=== PATIENT | male | born 1950 ===

== ENCOUNTER → 2016-05-13 | Outpatient (CLI) | payer BC ==
--- NOTE | 2016-05-13 18:14 | FL ---
EXAMINATION: Upper GI with small bowel follow through DATE: 05/13/2016 CLINICAL INDICATION: 65-year-old male iron deficiency anemia, complains of reflux. Reports normal end oscopy 3 months ago. 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 Phlebolith in the left hemipelvis. The esophagus has a normal course and caliber. Moderate tertiary peristaltic waves are demonstrated during episodes of moderate to severe gastroesop hageal reflux when the patient is supine. A small sliding her hiatal hernia is seen. Within the stomach, there is suggestion of few scattered small rounded filling defects likely hyperpl astic polyps. No suspicious irregular filling defect or discrete ulceration is seen. The duodenum is free of any persistent filling defect and demonstrate a normal mucosal pattern. Following administration of barium, serial films were carried out to 45 hours. Barium is seen to reac h the colon at 30 minutes. Loops of jejunum and ileum are compressed and examined under fluoroscopy. The small bowel loops have a normal-caliber. Mucosal pattern is within normal limits. No intrinsic or extrinsic process is suspe cted. IMPRESSION: 1. Small sliding hiatal hernia with moderate to severe spontaneous gastroesophageal reflux when the p atient is supine. 2. Moderate tertiary peristaltic contractions ensue and is unsuccessful in clearing the refluxed cont rast. 3. A few scattered small hyperplastic polyps in the stomach which can be seen with chronic gastritis. Clinically correlate. The overall mucosal pattern is normal. 4. Unremarkable small bowel examination. Small bowel transit time is at the faster end of normal (30 minutes).
== END | disposition home or self-care (01) ==
LOC: RADFLMAIN 08:59
PROVIDERS: ATTEND Internal Medicine
DX: K31.7 Polyp of stomach and duodenum (principal); K44.9 Diaphragmatic hernia without obstruction or gangrene; K21.9 Gastro-esophageal reflux disease without esophagitis
CPT/HCPCS: 74249

== ENCOUNTER → 2016-06-04 | Outpatient (CLI) | payer BC, MEDICARE ==
--- NOTE | 2016-06-04 19:42 | XR ---
EXAMINATION TYPE: XR cervical spine comp DATE OF EXAM: 06/04/2016 7:36 PM COMPARISON: NONE HISTORY: Neck pain TECHNIQUE: 5 views FINDINGS: Cervical vertebra have normal alignment. There is degenerative disc space narrowing in the mid and lower cervical spine. There is spurring of the endplates. There is neural foraminal narrowing bilaterally at C5-6 C6-7 due to uncovertebral spurring. Atlantoaxial facet joint is normal. There ar e no cervical ribs. IMPRESSION: Moderate spondylotic changes. No fracture.
== END ==
LOC: RADXRMAIN 19:23
PROVIDERS: ATTEND Internal Medicine
DX: M47.812 Spondylosis without myelopathy or radiculopathy, cervical region (principal)
CPT/HCPCS: 72050

== ENCOUNTER → 2020-12-29 | Outpatient (CLI) | payer BC ==
[2020-12-29 16:04] LABS: HGB 14.6 g/dL (13.0-17.0); MCH 28.9 pg (27.0-32.0); MCHC 32.4 g/dL (32.0-37.0); MCV 89.1 fL (80.0-97.0); Mean Platelet Volume 10.8 fL (9.5-12.2); Platelet Count 234 X 10*3/uL (140-440); RBC 5.05 X 10*6/uL (4.40-5.60); RDW 13.5 % (11.5-14.5); WBC 7.45 X 10*3/uL (4.50-10.00)
[2020-12-29 18:33] LABS: Albumin 4.5 g/dL (3.8-4.9); Albumin/Globulin Ratio 1.99 (1.60-3.17); Anion Gap 12.1 mmol/L (4.00-12.00); BUN/Creat Ratio 11.09 Ratio (12.00-20.00); Blood Urea Nitrogen 10.2 mg/dL (9.0-27.0); Calcium 9.4 mg/dL (8.7-10.3); Carbon Dioxide 26.7 mmol/L (21.6-31.8); Globulin 2.3 g/dL (1.6-3.3); Non-African American GFR(CKD) 82.8 (60.0-200.0); Potassium 4.4 mmol/L (3.5-5.5); Prostate Specific Antigen 0.8 ng/mL (0.00-6.50); Total Bilirubin 0.7 mg/dL (0.30-1.20); Total Protein 6.8 g/dL (6.2-8.2)
[2020-12-29 18:34] LABS: Chol/HDL Ratio 4.45 Ratio; HDL Cholesterol 37.5 mg/dL (40.00-60.00); LDL Cholesterol,Calculated 75.9 mg/dL (0.0-131.0); VLDL Calculation 53.6 mg/dL (5.00-40.00)
== END | disposition home or self-care (01) ==
LOC: LABWHC1 09:17
PROVIDERS: ATTEND Family Medicine
DX: N40.0 Benign prostatic hyperplasia without lower urinary tract symptoms (principal); E78.5 Hyperlipidemia, unspecified; E66.3 Overweight; E11.9 Type 2 diabetes mellitus without complications
CPT/HCPCS: 36415; 80053; 80061; 82550; 82607; 83036; 84153; 84443; 84481; 85027